=== PATIENT | male | born 1950 | race Caucasian/White ===

== ENCOUNTER → 2016-11-13 | Day surgery (SDC) | payer MEDICARE, OTHER ==
[~2016-11-13] MED LIST: BUPIVACAINE/EPINEPHRINE 0.5% PF 30 ML VIAL ONE; FLUMAZENIL 1 MG/10 ML VIAL IV ONE; LACTATED RINGER'S 1000 ML INJ 1,000 ML ONE; LIDOCAINE 1%/EPINEPHrine 1:100,000 SOLN 30 ML VIAL ONE; MIDAZOLAM HCL 2 MG/2 ML VIAL ONE; NEOMYCIN/POLYMYXIN/BACITRACIN OINT 15 GM TUBE ONE; ONDANSETRON HCL 4 MG/2 ML VIAL IV PUSH ONE; ceFAZolin INJ 1,000 MG VIAL ONE
--- NOTE | 2016-11-13 12:12 | TN ---
cc: JIMMY SALAZAR M.D. DATE OF SURGERY: 11/13/2016 PREOPERATIVE DIAGNOSIS Ulcerative skin lesion left chest wall measuring 5 x 4 cm. POSTOPERATIVE DIAGNOSIS Ulcerative skin lesion left chest wall measuring 5 x 4 cm. PROCEDURE Wide excision creating a defect 15 x 7 cm to completely excise highly suspicious lesion. closed with rotational flap double layer ANESTHESIA General. SURGEON Dr. Salazar INDICATIONS This is a pleasant 66-year-old gentleman who has an ulcerative skin lesion on his left chest wall which has been growing the last two years. Plans were made for wide excision. DETAILS OF PROCEDURE The patient was taken to the operating room and placed in the supine position. After anesthesia, a timeout and antibiotics, an elliptical incision is made measuring 15 x 7 cm to get complete excision of this suspicious lesion. We dissect down to the deep subcutaneous tissue along basically the breast chest wall area on the left side. It is oriented somewhat at an oblique angle. Once the complete lesion is excised after anesthetizing with Marcaine solution, we dipak it at the 12 o'clock position and it is passed off the field. We then create flaps medially and laterally to rotate the tissue to reapproximate the deep layer with 3-0 Vicryl and skin re-approximated with 3-0 nylon. The patient tolerated the procedure well and had no immediate post-op complications. Jimmy Salazar MD JDB/MARV /11:30 AM /12:08 PM REANNA
== END | disposition home or self-care (01) ==
LOC: ESDC 08:54
PROVIDERS: ATTEND Surgery
DX: C44.529 Squamous cell carcinoma of skin of other part of trunk (principal)
CPT/HCPCS: 00400; 14301; 14302; 88305; J0690; J2250; J2405; J3010; J7120